=== PATIENT | female | born 1970 | race Caucasian/White ===

== ENCOUNTER 2016-09-12 13:36 | Emergency (ER) | payer BC ==
[2016-09-12 13:42] VITALS: BP 150/90; PULSE 85; TEMP 98.1; BMI 23.6
--- NOTE | 2016-09-12 15:13 | PDOC ---
History of Present Illness - General Chief Complaint: Cold Symptoms Stated Complaint: THROAT/NECK PAIN Time Seen by Provider: 09/12/16 13:57 - History of Present Illness Initial Comments: 09/12/16 15:07 CHIEF COMPLAINT: cough, neck discomfort HISTORY OF PRESENT ILLNESS: 46 yo F with no PMH presents [facility] with neck discomfort since yesterday. PAtient states she has been feeling "like I have the flu" for 2 days, and has been coughing. She denies fever, nausea, vomiting, diarrhea, body aches, headaches, chills. She reports that she feels "a pressure in my neck sometimes." No recent travel or sick contacts. PAST MEDICAL HISTORY: Denies past medical history FAMILY HISTORY: Denies SOCIAL HISTORY: Denies tobacco, alcohol, illicit drug use. SURGICAL HISTORY: Denies ALLERGIES: No known drug allergies REVIEW OF SYSTEMS General/Constitutional: Denies fever or chills. Denies weakness, weight change. HEENT: Denies change in vision. Denies ear pain or discharge. Denies sore throat. Cardiovascular: Denies chest pain or shortness of breath. Respiratory:Cough x 2 days. Denies wheezing, or hemoptysis. Gastrointestinal: Denies nausea, vomiting, diarrhea or constipation. Denies rectal bleeding. Genitourinary: Denies dysuria, frequency, or change in urination. Musculoskeletal: Denies joint or muscle swelling or pain. Denies neck or back pain. Skin and breasts: Denies rash or easy bruising. Neurologic: Denies headache, vertigo, loss of consciousness, or loss of sensation. PHYSICAL EXAM General Appearance: Well-appearing, appropriately dressed. No apparent distress , no intoxication. HEENT: EOMI, PERRLA, normal ENT inspection, normal voice, TMs normal, pharynx normal. No conjunctival pallor. No photophobia, scleral icterus. Neck: L neck lymphadenopathy. Supple. Trachea midline. No tenderness, rigidity , carotid bruit, stridor, or thyromegaly. Respiratory/Chest: Lungs CTAB. Cardiovascular: RRR. S1, S2. Gastrointestinal/Abdominal: Normal bowel sounds. Abdomen soft, non-distended. No tenderness or rebound tenderness. No organomegaly, pulsatile mass, guarding , hernia, hepatomegaly, splenomegaly. Musculoskeletal/Extremities: Normal inspection. FROM of all extremities, normal capillary refill. Pelvis Stable. No CVA tenderness. No tenderness to extremities, pedal edema, swelling, erythema or deformity. Integumentary: Appropriate color, dry, warm. No cyanosis, erythema, jaundice or rash Neurologic: inspector returned materials II-XII intact. Fully oriented, alert. Appropriate mood/affect. Motor strength 5/5. No appreciable EOM palsy, facial droop or sensory deficit. Past History - Past Medical History Allergies/Adverse Reactions: Allergies Allergy/AdvReac Type Severity Reaction Status Date / Time No Known Drug Allergies Allergy Verified 01/13/16 12:55 Home Medications: Ambulatory Orders Dextromethorphan HBr [Robitussin] 15 mg PO QID #40 capsule 09/12/16 Anemia: No Asthma: No Cancer: No Cardiac Disorders: No CVA: No COPD: No CHF: No Dementia: No Diabetes: No GI Disorders: No Disorders: No HTN: No Hypercholesterolemia: No Liver Disease: No Seizures: No Thyroid Disease: No Other medical history: NONE - Reproductive History (#): 0 Para: 0 - Psycho/Social/Smoking Cessation Hx Anxiety: No Suicidal Ideation: No Smoking Status: No Smoking History: Never smoked Number of Cigarettes Smoked Daily: 0 Hx Alcohol Use: Yes (social) Drug/Substance Use Hx: No Substance Use Type: None *Physical Exam - Vital Signs Last Vital Signs Temp Pulse Resp BP Pulse Ox 98.1 F 85 20 150/90 99 09/12/16 13:40 09/12/16 13:40 09/12/16 13:40 09/12/16 13:40 09/12/16 13:40 Medical Decision Making - Medical Decision Making 09/12/16 15:11 46 yo F with no PMH presents to [facility] with cough x 2 days and associated L sided neck discomfort. -Flu swab Neck discomfort likely secondary to cervical lymphadenopathy from viral cough. -Dextrmethorphan 15 mg QID PRN cough Advised patient to follow up with primary care doctor on in 2 days if symptoms persist. Advised patient of signs and symptoms for return to ER; patient verbalized understanding and agrees to plan. *DC/Admit/Observation/Transfer Diagnosis at time of Disposition: Viral URI with cough - Discharge Dispostion Disposition: HOME Condition at time of disposition: Stable Admit: No - Prescriptions Prescriptions: Dextromethorphan HBr [Robitussin] 15 mg PO QID #40 capsule - Referrals Referrals: Sofiya Finley MD [Primary Care Provider] - - Patient Instructions Printed Discharge Instructions: DI for Cough -- Adult Additional Instructions: Please take medication as prescribed and follow up with your primary care doctor in 2 days if symptoms persist. If you experience any palpitations, headache, change in vision, shortness of breath, chest pain, or any new or worsening symptoms, please return to the ER.
== END 2016-09-12 15:24 | disposition home or self-care (01) ==
LOC: JERFT 13:36
DX: J06.9 Acute upper respiratory infection, unspecified (principal)
CPT/HCPCS: 87804; 99281-25

== ENCOUNTER 2018-04-08 17:33 | Emergency (ER) | payer BC ==
[2018-04-08 17:51] VITALS: BP 138/87; PULSE 88; TEMP 98.3; BMI 23.6
[2018-04-08] MEDS ORDERED: ERYTHROMYCIN 0.5% OPHTHALMIC OINTMENT 3.5 GM TUBE OS ONE (18:03)
[2018-04-08] MEDS ORDERED: ERYTHROMYCIN 0.5% OPHTHALMIC OINTMENT 3.5 GM TUBE ONE (18:07)
--- NOTE | 2018-04-08 18:08 | PDOC ---
History of Present Illness - General Chief Complaint: Eye Problem Stated Complaint: REDNESS TO EYE Time Seen by Provider: 04/08/18 17:55 History Source: Patient, Family Exam Limitations: No Limitations - History of Present Illness Initial Comments: 04/08/18 18:02 States woke up this morning with tearing and redness to her left eye. Denies purulent drainage but states was painful with mild photophobia, and then within one to 2 hours transferred to the right eye off. 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 Timing/Duration: unsure, 4-6 hours Severity: mild, moderate Associated Symptoms: reports: headaches, malaise. denies: cough, fever/chills Past History - Travel Traveled outside of the country in the last 30 days: No Close contact w/someone who was outside of country & ill: No - Past Medical History Allergies/Adverse Reactions: Allergies Allergy/AdvReac Type Severity Reaction Status Date / Time No Known Drug Allergies Allergy Verified 04/08/18 17:47 Home Medications: Ambulatory Orders Cyclobenzaprine HCl [Flexeril -] 10 mg PO TID 04/08/18 Erythromycin 0.5% Eye Ointment [Erythromycin 0.5% Eye Ointment -] 1 applic OU TID #1 tube 04/08/18 Naphazoline/Hpm/Ps80/Zinc Sulf [Clear Eyes Complete Eye Drops] 15 ml OP ASDIR Ranitidine [Zantac -] 150 mg PO DAILY 04/08/18 Anemia: No Asthma: No Cancer: No Cardiac Disorders: No CVA: No COPD: No CHF: No Dementia: No Diabetes: No GI Disorders: No Disorders: No HTN: No Hypercholesterolemia: No Liver Disease: No Seizures: No Thyroid Disease: No - Reproductive History (#): 0 Para: 0 - Suicide/Smoking/Psychosocial Hx Smoking Status: No Smoking History: Never smoked Have you smoked in the past 12 months: No Number of Cigarettes Smoked Daily: 0 Information on smoking cessation initiated: No Hx Alcohol Use: No Drug/Substance Use Hx: No Substance Use Type: None Review of Systems - Review of Systems Able to Perform ROS?: Yes Is the patient limited Yakut proficient: Yes Constitutional: Yes: Symptoms Reported, See HPI, Malaise. No: Fever HEENTM: Yes: Symptoms Reported, See HPI, Eye Pain, Tearing. No: Ear Pain, Nose Congestion Respiratory: Yes: See HPI. No: Symptoms reported, Cough Integumentary: Yes: See HPI. No: Symptoms Reported, Erythema, Lesions Neurological: Yes: Symptoms reported, See HPI, Headache (frontal ) All Other Systems: Reviewed and Negative *Physical Exam - Vital Signs Last Vital Signs Temp Pulse Resp BP Pulse Ox 98.3 F 88 16 138/87 100 04/08/18 17:48 04/08/18 17:48 04/08/18 17:48 04/08/18 17:48 04/08/18 17:48 - Physical Exam General Appearance: Yes: Nourished, Appropriately Dressed, Apparent Distress, Mild Distress, Moderate Distress HEENT: positive: EOMI, YAHIR (sclera conjunctiva injected, with tearing.. + photoPhobia and no obvious swelling or purulent drainage), Normal ENT Inspection , TMs Normal, Pharynx Normal, Rhinorrhea, Other Neck: positive: Supple. negative: Lymphadenopathy (R), Lymphadenopathy (L) Respiratory/Chest: positive: Lungs Clear. negative: Chest Tender Musculoskeletal: positive: Normal Inspection Extremity: positive: Normal Capillary Refill, Normal Inspection, Normal Range of Motion Integumentary: positive: Normal Color, Dry, Warm Neurologic: positive: story analyst II-XII NML intact, Fully Oriented, Alert, Normal Mood/ Affect, Normal Response, Motor Strength 5/5 *DC/Admit/Observation/Transfer Diagnosis at time of Disposition: Acute conjunctivitis, bilateral Qualifiers: Acute conjunctivitis type: unspecified Qualified Code(s): H10.33 - Unspecified acute conjunctivitis, bilateral - Discharge Dispostion Disposition: HOME Condition at time of disposition: Stable Decision to Admit order: No - Prescriptions Prescriptions: Erythromycin 0.5% Eye Ointment [Erythromycin 0.5% Eye Ointment -] 1 applic OU TID #1 tube - Referrals Referrals: Sofiya Finley MD [Primary Care Provider] - Akhil Salguero MD [Staff Physician] - - Patient Instructions Printed Discharge Instructions: DI for Conjunctivitis Additional Instructions: Rest, avoid rubbing eyes Wash hands frequently as this is very contagious Wash hands, use eye drops as directed, wash hands after use Do not share eyedrops with other person to may become infected as this will infect them Erythromycin ointment 1 squeeze to each eye 3 times a day for 5 days Avoid contact with others until redness and discharge is gone from eyes. Followup with ophthalmology or private physician as needed - Post Discharge Activity Forms/Work/School Notes: Back to Work
== END 2018-04-08 18:33 | disposition home or self-care (01) ==
LOC: JERFT 17:33
DX: H10.33 Unspecified acute conjunctivitis, bilateral (principal)
CPT/HCPCS: 99281-25

== ENCOUNTER 2019-07-18 06:03 | Day surgery (SDC) | payer OTHER ==
[2019-07-17 12:33] VITALS: BMI 24.0
--- NOTE | 2019-07-17 14:26 | HP ---
[facility] [place] - Chief Complaint Chief Complaint: right middle and thumb trigger fingers - Past Medical History Allergies/Adverse Reactions: Allergies Allergy/AdvReac Type Severity Reaction Status Date / Time No Known Drug Allergies Allergy Verified 07/18/19 07:01 ...LMP: 07/03/19 - Current Medications Current Medications: Home Medications Medication Instructions Recorded Naproxen Sodium [Aleve] 220 mg PO DAILY 07/17/19 Hydrocodone/Acetaminophen 1 - 2 tab PO TID PRN #15 tablet 07/18/19 [Hydrocodone-Acetamin 5-325 mg] MDD 6 Satellite Physical Exam - Physical Examination General Appearance: Well Nourished, Well Developed, Alert & Oriented x3 ENT: Clear Lung: Normal air movement Extremities: Other (right finger- + ttp a1 justin middle and thumb, + locking, nvi) Neurological: Intact, Alert, Oriented [place] Impression/Plan - Impression/Plan Impression: right middle and thumb trigger finger Operative Procedure: right middle and thumb trigger finger release Date to be Performed: 07/18/19
[2019-07-18] MEDS ORDERED: MIDAZOLAM HCL 2 MG/2 ML SINGLE DOSE VIAL ONE (07:06)
[2019-07-18] MEDS ORDERED: SUCCINYLCHOLINE CHLORIDE 200 MG/10 ML SYRINGE ONE (07:06)
[2019-07-18] MEDS ORDERED: PROPOFOL 20 ML ONE (07:06)
[2019-07-18] MEDS ORDERED: LIDOCAINE HCL 1%, 10 MG/ML (20ML VIAL) ONE (07:22)
[2019-07-18] MEDS ORDERED: DEXAMETHASONE SOD PHOSPHATE 4 MG/1 ML VIAL ONE (08:06)
[2019-07-18] MEDS ORDERED: KETOROLAC TROMETHAMINE 30 MG/1 ML VIAL ONE (08:06)
[2019-07-18] MEDS ORDERED: ONDANSETRON 4 MG/2 ML VIAL ONE (08:06)
[2019-07-18] MEDS ORDERED: ceFAZolin SODIUM 1 GM VIAL IVPB ONE (08:07)
[2019-07-18] MEDS ORDERED: ceFAZolin SODIUM 1 GM VIAL ONE (08:09)
[2019-07-18] MEDS ORDERED: LIDOCAINE HCL 1%, 10 MG/ML (20ML VIAL) INF ONE ×2 (08:20)
[2019-07-18] MEDS ORDERED: BUPIVACAINE HCL/PF 0.5% (5MG/ML) 10 ML VIAL IJ ONE ×2 (08:20)
--- NOTE | 2019-07-18 08:54 | OP ---
Operative Note - Note: Operative Date: 07/18/19 Pre-Operative Diagnosis: right middle finger and thumb trigger thumb Operation: right middle finger and trigger thumb release x 2, tendon sheath excision x 2 Post-Operative Diagnosis: Same as Pre-op Surgeon: Benjamin Augustin Anesthesiologist/AUTO BODY REPAIR TEACHER: Shelby Mckeon Anesthesia: Local, MAC Specimens Removed: tendon sheath Estimated Blood Loss (mls): 0 Drains, Volume Out (mls): 0 Blood Volume Replaced (mls): 0 Fluid Volume Replaced (mls): 500 Operative Report Dictated: Yes
--- NOTE | 2019-07-18 09:19 | SPEC ---
DATE OF OPERATION: 07/18/2019 PREOPERATIVE DIAGNOSIS: Recurrent right trigger thumb and middle finger trigger finger. POSTOPERATIVE DIAGNOSIS: Recurrent right trigger thumb and middle finger trigger finger. PROCEDURE: Right middle finger and thumb trigger finger release and tendon sheath excision. SURGEON: Benjamin Augustin MD ASSISTANTS: None. ANESTHESIA: Shelby Mckeon, REF-MEDICAL EQUIPMENT REPAIRER, MAC anesthesia with local injection of 15 mL 0.5% Marcaine, 1% Xylocaine mix. DRAINS: None. COMPLICATIONS: None. BLOOD LOSS: None. BLOOD GIVEN: None. FLUID REPLACEMENT: 500 mL Plasmalyte. SPECIMEN: Tendon sheath, right thumb and right middle finger. INDICATIONS: This patient is a 49-year-old right-hand dominant female with a history of recurrent severe right trigger thumb and middle finger trigger finger. After failing nonoperative treatment, the patient elected to undergo this procedure. After understanding the potential risks, complications, benefits, alternatives of the surgery vs. non-surgical treatment, the patient elected to undergo this procedure. PROCEDURE: The patient was brought to the operating room, IV was placed, IV sedation was given. One gram of intravenous Ancef given. A tourniquet was applied to the right upper arm and the right upper extremity was prepped and draped in sterile fashion. The entire case was done under 3.8 loupe magnification. A marking pen was utilized to govind out a longitudinal incision in an already existing skin crease at the base of the right thumb right and right middle finger. Then 10 mL of 0.5% Marcaine mixed with 1% lidocaine was injected in and around the incision. The right upper extremity was elevated, exsanguinated with an Esmarch bandage and the tourniquet inflated to 250 mmHg. A No. 15 scalpel blade was utilized to cut down through the skin. Subcutaneous hemostasis was achieved with the bipolar cautery. Additional dissection was done with Littler scissors until I was able to directly visualize the A1 justin sheath in its entirety. Self-retaining retractors were placed into the wound. A Frostproof elevator was used to free up the tissue on the radial side, the ulnar side distally and proximally under better visualization of A1 justin sheath. Next, using a fresh No. 15 scalpel blade, I excised the central one-third of the A1 justin sheath and passed it off the field as specimen, tendon sheath, right thumb and middle finger. I then completed the release, both distally and proximally, and brought the FDS and FDP tendons out through the wound with a Ragnell retractor. There were no abnormal points of compression. I was able to move the right thumb and middle finger without the tendons bunching up at all. The area was then copiously irrigated and washed out. I then checked one more time to make sure there were no abnormal points of compression. None were seen and therefore closure was begun. One stitch using 4-0 Vicryl was used in the deep dermal layer. Skin was reapproximated with 4-0 nylon sutures in a horizontal mattress fashion. The area was then washed and dried, covered with Xeroform gauze, sterile 4 x 4s, fluffs between the fingers, Webril and Coban. The tourniquet was taken down after a total tourniquet time of 30 minutes. There were no complications during the case. The patient tolerated the procedure well and was brought to the Ambulatory Recovery Room in stable condition. Joceline [id number]
[2019-07-18 10:16] VITALS: BP 120/70
[2019-07-18] MEDS ORDERED: ONDANSETRON 4 MG/2 ML VIAL IVPUSH PRN (10:29)
[2019-07-18] MEDS ORDERED: oxyCODONE HCL 5 MG TABLET PO PRN (10:29)
[2019-07-18] MEDS ORDERED: LACTATED RINGERS SOLUTION 1,000 ML IV SCH (10:30)
[2019-07-18 15:02] VITALS: PULSE 70; TEMP 97.8
--- NOTE | 2019-07-19 17:58 | PATH ---
Surgical Pathology Report Patient Name: MARIELENA JEAN [facility]. Rec. #: [id number] /Age/Gender: 1970 (Age: 49) / F Account: [id number] Location: [facility] SURGICAL Taken: 07/18/2019 Received: 07/18/2019 Reported: 07/19/2019 Physicians: Benjamin Augustin M.D. Specimen(s) Received TENDON SHEATH Clinical History Trigger finger right middle finger and thumb Final Diagnosis TENDON SHEATH, MIDDLE FINGER AND THUMB, RIGHT,TRIGGER FINGER RELEASE: FRAGMENTS OF BENIGN DENSE FIBROCONNECTIVE TISSUE AND FIBROADIPOSE TISSUE. Electronically Signed Carolann Jimenez M.D. Gross Description Received in formalin labeled "tendon sheath," is a 0.8 x 0.5 x 0.1 cm aggregate of forde-yellow fibrous tissue fragments. The specimen is submitted in toto in one cassette. 07/18/2019 [facility]07/18/2019
== END 2019-07-18 11:45 | disposition home or self-care (01) ==
LOC: JASU-SURG 06:03
PROVIDERS: ATTEND Orthopaedic Surgery
PROC: 0LN70ZZ Release Right Hand Tendon, Open Approach (ICD-10-PCS; 2019-07-18)
PROC: 0LN70ZZ Release Right Hand Tendon, Open Approach (ICD-10-PCS; principal; 2019-07-18 08:00)
DX: M65.311 Trigger thumb, right thumb (principal); M65.331 Trigger finger, right middle finger
CPT/HCPCS: 84703

== ENCOUNTER 2023-05-25 15:53 | Observation (INO) | payer BC, OTHER ==
[2023-05-25 16:17] VITALS: BMI 24.3
[2023-05-25] MEDS ORDERED: FAMOTIDINE 20 MG/50 ML IVPB 20 MG/50 ML MG IVPB ONE ×2 (18:26→18:51)
[2023-05-25] MEDS ORDERED: MAG HYDROX/AL HYDROX/SIMETH 30 ML UNIT-DOSE CUP PO ONE (18:26)
[2023-05-25] MEDS ORDERED: ACETAMINOPHEN 1000 MG/100 ML BAG IVPB ONE (18:26)
[2023-05-25 18:29] LABS: BASO % 0.9 % (0-2.0); EOS % 2.8 % (0-4.5); HEMATOCRIT 43.2 % (32.4-45.2); HEMOGLOBIN 14.3 GM/dL (10.7-15.3); MCH 29.6 pg (25.7-33.7); MCHC 33.2 g/dl (32.0-36.0); MEAN CELL VOLUME 89.4 fl (80-96); MEAN PLT VOLUME 9.3 fl (7.5-11.1); NEUT % 52.3 % (42.8-82.8); PLATELET COUNT 290 10^3/uL (134-434); RBC 4.83 M/mm3 (3.60-5.2); RDW 13.3 % (11.6-15.6); WHITE BLOOD COUNT 8.4 K/mm3 (4.0-10.0)
[2023-05-25 18:44] LABS: INR 1.05 (0.83-1.09); PROTHROMBIN TIME (PATIENT) 12.2 SEC (9.7-13.0)
[2023-05-25 18:48] LABS: ACTIVATED PTT 31.1 SECONDS (25.2-36.5)
[2023-05-25] MEDS ORDERED: MAG HYDROX/AL HYDROX/SIMETH 30 ML UNIT-DOSE CUP ONE (18:51)
[2023-05-25] MEDS ORDERED: ACETAMINOPHEN INJECTION 100 ML IVPB ONE (18:51)
[2023-05-25 18:53] LABS: POTASSIUM 3.7 mmol/L (3.5-5.1)
[2023-05-25 18:57] LABS: ALBUMIN 4.7 g/dl (3.4-5.0); BLOOD UREA NITROGEN 10.5 mg/dL (7-18); CALCIUM 9.4 mg/dL (8.5-10.1); MAGNESIUM 2.2 mg/dL (1.8-2.4)
[2023-05-25 19:00] LABS: CREATININE 0.7 mg/dL (0.55-1.3)
[2023-05-25 19:02] LABS: BILIRUBIN,TOTAL 0.6 mg/dL (0.2-1); TOT PROT 8.6 g/dl (6.4-8.2)
[2023-05-25] MEDS ORDERED: ACETAMINOPHEN 325 MG TABLET (FP) PO PRN (22:53)
[2023-05-25] MEDS ORDERED: DOCUSATE SODIUM 100 MG CAPSULE (FP) PO PRN (22:53)
[2023-05-26] MEDS ORDERED: ACETAMINOPHEN 325 MG TABLET (FP) ONE (03:17)
[2023-05-26 07:10] VITALS: TEMP 98.4
[2023-05-26] MEDS ORDERED: ACETAMINOPHEN 325 MG TABLET (FP) PO PRN (08:27)
[2023-05-26] MEDS ORDERED: KETOROLAC TROMETHAMINE 15 MG/ML VIAL IVPUSH ONE (08:30)
[2023-05-26 09:37] LABS: BASO % 1.1 % (0-2.0); EOS % 3.5 % (0-4.5); HEMATOCRIT 39.1 % (32.4-45.2); HEMOGLOBIN 12.8 GM/dL (10.7-15.3); LYMPH % 26.2 % (8-40); MCH 29.1 pg (25.7-33.7); MCHC 32.7 g/dl (32.0-36.0); MEAN CELL VOLUME 88.8 fl (80-96); MEAN PLT VOLUME 9.6 fl (7.5-11.1); MONO % 10.5 % (3.8-10.2); NEUT % 58.7 % (42.8-82.8); PLATELET COUNT 277 10^3/uL (134-434); RDW 13.5 % (11.6-15.6); WHITE BLOOD COUNT 5.4 K/mm3 (4.0-10.0)
[2023-05-26] MEDS ORDERED: amLODIPine BESYLATE 5 MG TABLET (FP) ONE (09:47)
[2023-05-26] MEDS ORDERED: PANTOPRAZOLE 20 MG TABLET PO ONE (09:48)
[2023-05-26] MEDS ORDERED: HEPARIN NA (PORCINE) 5,000 UNITS/ML 1ML VIAL ONE (09:48)
[2023-05-26] MEDS ORDERED: KETOROLAC TROMETHAMINE 15 MG/ML VIAL ONE (09:48)
[2023-05-26] MEDS ORDERED: PANTOPRAZOLE 20 MG TABLET PO SCH (10:00)
[2023-05-26] MEDS ORDERED: amLODIPine BESYLATE 5 MG TABLET (FP) PO SCH (10:00)
[2023-05-26] MEDS ORDERED: HEPARIN NA (PORCINE) 5,000 UNITS/ML 1ML VIAL SQ SCH (10:00)
[2023-05-26 10:34] LABS: POTASSIUM 3.9 mmol/L (3.5-5.1)
[2023-05-26 10:40] LABS: BLOOD UREA NITROGEN 16.5 mg/dL (7-18)
[2023-05-26 10:41] LABS: CALCIUM 8.5 mg/dL (8.5-10.1)
[2023-05-26 10:44] LABS: CREATININE 0.7 mg/dL (0.55-1.3)
[2023-05-26 10:51] VITALS: BP 101/52; PULSE 78; RESP 16
[2023-05-26] MEDS ORDERED: KETOROLAC TROMETHAMINE 15 MG/ML VIAL IVPUSH PRN (14:30)
== END 2023-05-26 15:30 | disposition home or self-care (01) ==
LOC: JER 15:53 → JERBED 21:46
PROVIDERS: ADMIT Internal Medicine; ATTEND Family Medicine
PROC: 3E033NZ Introduction of Analgesics, Hypnotics, Sedatives into Peripheral Vein, Percutaneous Approach (ICD-10-PCS; principal; 2023-05-25)
PROC: 3E033GC Introduction of Other Therapeutic Substance into Peripheral Vein, Percutaneous Approach (ICD-10-PCS; 2023-05-25)
PROC: 3E023GC Introduction of Other Therapeutic Substance into Muscle, Percutaneous Approach (ICD-10-PCS; 2023-05-25)
PROC: 3E0333Z Introduction of Anti-inflammatory into Peripheral Vein, Percutaneous Approach (ICD-10-PCS; 2023-05-25)
DX: R07.9 Chest pain, unspecified (principal); I10 Essential (primary) hypertension; G89.29 Other chronic pain; M54.9 Dorsalgia, unspecified; G43.909 Migraine, unspecified, not intractable, without status migrainosus
CPT/HCPCS: 36415; 71046-TC-FY; 80048; 80053; 82550; 83735; 84484; 85025; 85610; 85730; 93005; 93010; 93351; 99285-25; G0378; J1644